=== PATIENT | male | born 1950 | race Caucasian/White ===

== ENCOUNTER 2024-08-05 10:27 | Outpatient (CLI) | payer MEDICARE ==
[2024-08-05 12:06] LABS: #Basophils 0.03 10x3/uL (0.0-0.2); %Basophils 0.4 % (0.0-1.0); %Eosinophils 5.2 % (0.0-10.0); %Lymphocytes 23.9 % (21.0-51.0); %Monocytes 10.1 % (0.0-10.0); %Neutrophils 60.3 % (42.0-75.0); Hematocrit 35.7 % (42.0-52.0); Hemoglobin 12.4 g/dL (14.0-18.0); Mean Corpuscular HGB CONC 34.7 g/dL (32.0-36.0); Mean Corpuscular Hemoglobin 32.3 pg (27.0-31.0); Mean Platelet Volume 10.1 fL (7.4-10.4); Platelet Count 302 10x3/uL (130-400); RBC Distribution Width 13.7 % (11.5-14.5); Red Blood Cell (RBC) Count 3.84 mill/uL (4.70-6.10)
[2024-08-05 12:23] LABS: Prothrombin Time 13.5 sec (12.0-14.7)
[2024-08-05 12:26] LABS: Anion Gap 10 mmol/L (10-20); BUN (Urea Nitrogen) 13 mg/dL (8.4-25.7); Calc. Creatinine Clearance 0 mL/min (70-130); Calcium 9.7 mg/dL (7.8-10.44); Carbon Dioxide 27 mmol/L (23-31); Chloride 107 mmol/L (98-107); Estimated GFR 73; Glucose 107 mg/dL (83-110); Potassium 3.4 mmol/L (3.5-5.1); Sodium 141 mmol/L (136-145)
== END 2024-08-05 10:28 | disposition home or self-care (01) ==
LOC: LABBT 10:27
PROVIDERS: ATTEND Neurological Surgery
DX: Z01.812 Encounter for preprocedural laboratory examination (principal); M50.00 Cervical disc disorder with myelopathy, unspecified cervical region
CPT/HCPCS: 80048; 85025; 85610; 85730

== ENCOUNTER 2024-08-05 16:30 | Inpatient (IN) | payer MEDICARE ==
[2024-08-08] MEDS ORDERED: Sodium Chloride 0.9% 100 ML ONE (06:08)
[2024-08-08] MEDS ORDERED: CEFAZOLIN 2 GM VIAL ONE (06:08)
[2024-08-08] MEDS ORDERED: Vancomycin 1 GM VIAL ONE (06:11)
[2024-08-08] MEDS ORDERED: Thrombin 5000 UNITS/5 ML VIAL ONE (06:11)
[2024-08-08] MEDS ORDERED: Ketamine In 0.9 % NaCl 50 MG/5 ML SYRINGE ONE (06:31)
[2024-08-08] MEDS ORDERED: Glycopyrrolate 0.2 MG/ML 5 ML SYRINGE ONE (06:31)
[2024-08-08] MEDS ORDERED: Midazolam HCl 2 mg/2 ml Vial ONE (06:31)
[2024-08-08] MEDS ORDERED: PROPOFOL 20 ML ONE (06:31)
[2024-08-08] MEDS ORDERED: Dexamethasone 20 MG/5 ML VIAL ONE (06:31)
[2024-08-08] MEDS ORDERED: fentaNYL PF 100 MCG/2 ML SYRINGE ONE ×3 (06:31→14:27)
[2024-08-08] MEDS ORDERED: Lidocaine 2% PF 5 ML VIAL ONE (06:31)
[2024-08-08] MEDS ORDERED: HYDROcodone/Acetaminophen 7.5/325 mg Tablet PO PRN (06:48)
[2024-08-08] MEDS ORDERED: Ondansetron PF 4 MG/2 ML Vial IVP PRN (06:48)
[2024-08-08] MEDS ORDERED: Mag-Al 1200 mg/1200 mg/30 ML UDCUP PO PRN (06:48)
[2024-08-08] MEDS ORDERED: Morphine 2 MG/ML VIAL SLOW IVP PRN (06:48)
[2024-08-08] MEDS ORDERED: Milk Of Magnesia 30 ML UDCUP PO PRN (06:48)
[2024-08-08] MEDS ORDERED: Promethazine HCl 25 MG/ML VIAL IM PRN ×2 (06:48→07:59)
[2024-08-08] MEDS ORDERED: Prochlorperazine 10 MG/2 ML VIAL IM PRN (06:48)
[2024-08-08] MEDS ORDERED: diphenhydrAMINE 50 MG/ML VIAL IVP PRN (06:48)
[2024-08-08] MEDS ORDERED: Polyethylene Glycol 3350 17 GM Packet PO PRN (06:52)
[2024-08-08] MEDS ORDERED: tiZANidine HCl 4 MG TAB PO PRN (06:52)
[2024-08-08] MEDS ORDERED: ePHEDrine Sulfate 50 MG/10 ML VIAL ONE ×2 (07:29→10:07)
[2024-08-08] MEDS ORDERED: Ondansetron HCl/PF 4 MG/2 ML Vial IVP PRN (07:59)
[2024-08-08] MEDS ORDERED: HYDROmorphone 2 MG/ML VIAL SLOW IVP PRN (07:59)
[2024-08-08] MEDS ORDERED: SUGAMMADEX SODIUM 200 MG/2 ML VIAL ONE ×2 (09:08→13:01)
[2024-08-08] MEDS ORDERED: PHENYLEPHRINE-NS 100 MCG/ML 10 ML SYRINGE ONE (09:30)
[2024-08-08] MEDS ORDERED: Rocuronium Bromide 10 MG/ML (10ML VIAL) ONE (12:08)
[2024-08-08] MEDS ORDERED: fentaNYL 50 mcg/mL 1 mL Vial ONE (13:40)
[2024-08-08] MEDS: Atenolol 50 MG TAB PO SCH (16:06)
[2024-08-08] MEDS: Hydrochlorothiazide 25 MG TAB PO SCH (16:06)
[2024-08-08] MEDS: Losartan 25 MG TAB PO SCH (16:06)
[2024-08-08] MEDS: Pantoprazole DR 40 MG TAB PO SCH (16:06)
[2024-08-08] MEDS: Amlodipine 5 MG TAB PO SCH (16:06)
[2024-08-08 16:15] VITALS: BMI 34.8
[2024-08-08] MEDS: Sodium Chloride 0.9% 1,000 ML IV SCH (16:27)
[2024-08-08] MEDS: CEFAZOLIN 2 GM in Sodium Chloride 0.9% 100 ML IVPB SCH (16:55)
[2024-08-08] MEDS: Acetaminophen/Codeine 30-300mg Tablet PO PRN (21:53)
[2024-08-09] MEDS: HYDROcodone/Acetaminophen 10/325 mg Tablet PO PRN (09:52)
[2024-08-09 11:23] VITALS: BP 152/66; TEMP 98
== END 2024-08-09 11:30 | disposition home or self-care (01) | DRG 472 ==
LOC: SURG A 08-08 05:43 → MSONC 08-08 15:16
PROVIDERS: ADMIT Neurological Surgery; ATTEND Neurological Surgery
PROC: 0RB30ZZ Excision of Cervical Vertebral Disc, Open Approach (ICD-10-PCS; principal; 2024-08-08)
PROC: 0RG20A0 Fusion of 2 or more Cervical Vertebral Joints with Interbody Fusion Device, Anterior Approach, Anterior Column, Open Approach (ICD-10-PCS; 2024-08-08)
DX: M50.00 Cervical disc disorder with myelopathy, unspecified cervical region (principal); G95.20 Unspecified cord compression; Z98.890 Other specified postprocedural states; E66.9 Obesity, unspecified; Z96.653 Presence of artificial knee joint, bilateral; Z90.89 Acquired absence of other organs; Z79.899 Other long term (current) drug therapy; Z68.34 Body mass index [BMI] 34.0-34.9, adult
CPT/HCPCS: A4314; C1713; J1100; J2001; J2250; J2704; J3010; J3370; J3490; J7030